=== PATIENT | male | born 1970 | race Hispanic/Latino ===

== ENCOUNTER 2025-06-05 08:01 | Inpatient (IN) | payer OTHER, SELFPAY ==
[2025-06-04 02:28] VITALS: BP 132/86
--- NOTE | 2025-06-04 02:56 | VATNOTE ---
PT ADMITTED FROM HOME HOSPICE TO IN-PATIENT HOSPICE FOR PAIN MANAGEMENT AND END OF LIFE CARE. PORT ACCESSED AT PATIENT AND 'S REQUEST.
--- NOTE | 2025-06-04 03:09 | ED.GENMED ---
History of Present Illness
General
Chief Complaint: Generalized Pain
Source: patient, spouse and family
Exam Limitations: clinical condition
Time Seen by Provider: 06/04/25 02:26
Nursing documentation reviewed up to this point in time: agreed with
History of Present Illness
History of Present Illness:
Note:
CHIEF COMPLAINT(S)
Severe pain and constipation.
HISTORY OF PRESENT ILLNESS
The patient is a 55-year-old male with a current complaint of severe pain and constipation. The patient has not had a bowel movement since Thursday and describes an overall lack of gastrointestinal movement that causes additional discomfort. He
experiences significant discomfort when consuming food, leading to a sensation reminiscent of vomiting, although this symptom has not been present. The patient reports that his intake of food has decreased, contributing to his overall discomfort.
The patient has been treated with Ativan previously, which has provided partial relief. The pain management regimen initially included Oxycontin 4 mg twice daily but was recently adjusted to include less long-acting medication last night with the
addition of a 50 mcg fentanyl patch. The patient has been receiving additional pain management throughout the day.
ADDITIONAL HISTORY OBTAINED FROM SOURCES OTHER THAN THE PATIENT
According to accompanying family members, hospice services have been involved at home, but symptom control was problematic due to the patient�s severe agitation and discomfort.
PHYSICAL EXAM
General: Alert, moderate acute distress.
Skin: Warm, dry. Jaundiced
Head: Normocephalic, atraumatic.
Neck: Supple, trachea midline.
Eye Ears, nose, mouth and throat: Oral mucosa moist.
Cardiovascular: Normal peripheral perfusion, no edema.
Respiratory: Respirations are non-labored.
Gastrointestinal: Abdomen nondistended.
Back: Normal range of motion, normal alignment.
Musculoskeletal: Normal ROM, normal strength.
Neurological: Alert and oriented to person, place, time, and situation, no focal neurological deficit observed.
Psychiatric: Cooperative, appropriate mood & affect.
PROBLEM LIST
Acute Problems:
- Severe pain
- Constipation
- Nausea
CHRONIC MEDICAL CONDITIONS SIGNIFICANTLY AFFECTING CARE
N/A
PLAN
1. Administer medication for nausea and pain control.
2. The patient will be assessed by the hospitalist to determine the appropriate plan for ongoing management and potential admission.
DIFFERENTIAL DIAGNOSIS
The Differential Diagnosis includes, in no particular order and is not limited to:
1. Acute cancer pain
2. Constipation secondary to opioid use
3. Gastroparesis
4. Peptic ulcer disease
5. Pancreatitis
6. Intestinal pseudo-obstruction
7. Severe opioid-induced bowel dysfunction
8. Malignancy causing bowel compression
9. Gastritis
10. Irritable bowel syndrome
Disposition:
SUMMARY OF ENCOUNTER
The patient, a 55-year-old male, was seen in the emergency department with complaints of severe pain and constipation. The patient has experienced no bowel movement since Thursday and reports significant gastrointestinal discomfort, as well as
discomfort when eating, which is likened to nausea. The patient�s food intake has diminished, exacerbating his discomfort. Pain management was adjusted, with the addition of a 50 mcg fentanyl patch to his regimen last night, following reduced
long-acting medication. Hospice services were involved at home but struggled with symptom control due to severe agitation and discomfort.
DISPOSITION
Admit
ASSESSMENT
Severe pain secondary to advanced colon cancer, with complications including constipation and reduced gastrointestinal motility.
PLAN
The patient will be admitted to the hospital service for comfort measures only, focusing on pain management and alleviating discomfort caused by constipation and gastrointestinal distress.
MEDICAL DECISION MAKING
- Complexity of Data Reviewed: Chronic conditions affecting care include severe pain possibly associated with malignancy. Differential diagnosis encompasses bowel obstruction, constipation secondary to opioid use, gastroparesis, peptic ulcer
disease, and other potential sources of discomfort and nausea.
- Data:
Category 2: Input from independent historians, specifically family members confirming hospice service involvement and challenges in symptom control.
- Risk: Decisions regarding ongoing pain management with opioid therapy and consideration for inpatient admission to provide adequate palliative care and symptom relief.
DIAGNOSIS
- Severe pain due to colon cancer (ICD-10 code: C18.9)
- Constipation secondary to medication (ICD-10 code: K59.00)
- Nausea associated with gastrointestinal distress (ICD-10 code: R11.0)
Phy Exam
Physical Exam
Physical Exam:
.
Course
Orders/Labs/Results
Orders:
Orders
06/04/25 02:59
Lorazepam [Ativan] 2 mg .ROUTE .STK-MED ONE
06/04/25 03:07
Lorazepam [Ativan] 1 mg IV NOW STA
Vital Signs
Initial and Last Documented VS:
Initial Vital Signs
Temp Pulse Resp BP Pulse Ox
97.7 F 83 18 132/86 100
06/04/25 02:28 06/04/25 02:28 06/04/25 02:28 06/04/25 02:28 06/04/25 02:28
Last Documented Vital Signs
Temp Pulse Resp BP Pulse Ox
97.7 F 83 18 132/86 100
06/04/25 02:28 06/04/25 02:28 06/04/25 02:28 06/04/25 02:28 06/04/25 02:28
*Pulse Oximetry
SaO2: 100
Oxygen Mode of Delivery: Room air
Patient hypoxic: no
*Critical Care Note
Total Time (30-74mins, 75-104mins- exclusive of procedures): Not Applicable
ED Attending Note
-
Portions of this chart may have been created with voice recognition software.� Occasional wrong word or��sound alike� substitutions may have occurred due to the inherent limitations of voice recognition software.
Discharge Plan
Departure
Patient Disposition: Admit
Date of Disposition: 06/04/25
Time of Disposition: 03:09
Admit to: Med/Surg
Presentation/result/management discussed w/ accepting MD/DO: Hospitalist
Condition: Serious
Discharge Problem:
Cancer-related pain
Interventions
Interventions:
*Risk Screen - Suicide Last Done: 06/04/25 02:28
*General Assessment Last Done: 06/04/25 02:28
*Neglect/Abuse Screening Last Done: 06/04/25 02:28
*ED- Fall Risk Assessment Last Done: 06/04/25 02:37
*ED COVID-19 Vaccine History Last Done: 06/04/25 02:37
*ED Influenza Vaccine History Last Done: 06/04/25 02:37
Discharge Date and Time
Print Language: THAI
[2025-06-04] MEDS: ATIVAN 1 MG IV (03:15)
--- NOTE | 2025-06-04 03:27 | HPS.HSE ---
Family Physician
-
Family Physician: Joby Sofia
Chief Complaint
-
Pain, Nausea
History of Present Illness
Patient is a 55y M with PMH significant for colon cancer currently on home hospice who presents to ED complaining of uncontrolled pain and nausea despite home hospice measures. Sent to ED for hospitalization at Hospice recommendation. History
obtained primarily from family at the bedside.
Patient initially diagnosed with colon cancer in 06/2023. On chemotherapy until February of this year. s/p multiple surgeries - most recent was ex lap in January which was aborted due to diffuse metastases.
Patient has been on hospice care at home for almost 2 weeks now.
Family states that he has not had a BM since Thursday. Typically has frequent, feculent emesis as well - and this has not occurred since Thursday either.
Patient has become progressively more agitated and in distress due to persistent nausea and abdominal discomfort.
Medical History
Past Medical History
Past Medical History: Reports Other
Additional Past Medical History:
Metastatic Colon Cancer
Hypertension
DM-II
Past Surgical History: Reports Other
Additional Past Surgical History:
Right Hemicolectomy (07/2023)
Liver Lesion Resection (06/2024)
Ex Lap - Planned Liver Lesion Resection - Aborted (01/2025)
Social History
Tobacco: Non-smoker
Alcohol: None
Drug: None
Family History
Family History: Not pertinent
Allergies / Home Medications
Allergies reflects when Allergies were last updated in [employer].
Home Medications with original date entered in [employer]
Allergy/Medication List:
Allergies
Allergy/AdvReac Type Severity Reaction Status Date / Time
No Known Allergies Allergy Unverified 06/04/25 03:05
Home Medications
dexamethasone 4 mg tablet 4 mg PO DAILY 06/04/25
fentanyl 25 mcg/hr transdermal patch 2 patch transdermal Q72H 06/04/25
gabapentin 300 mg capsule 300 mg PO BID 06/04/25
haloperidol 1 mg tablet 1.5 mg PO Q1.5HPRN PRN nausea 06/04/25
haloperidol lactate 2 mg/mL oral concentrate 1 mg PO Q3HPRN PRN nausea 06/04/25
hyoscyamine sulfate 0.125 mg/mL oral drops 0.125 mg PO Q4HPRN PRN secretions 06/04/25
lorazepam 1 mg/0.5 mL oral syringe (FOR ORAL USE ONLY) 1 mg PO Q4HPRN PRN anxiety 06/04/25
morphine 10 mg/5 mL oral solution 5 mg PO Q3HPRN PRN pain 06/04/25
omeprazole 20 mg capsule,delayed release 20 mg PO BID 06/04/25
Review of Systems
-
History Source: Patient and Family
A 12 point ROS was completed and negative except as noted: Yes
Constitutional: Reports Fatigue; Denies Fever
Respiratory: Reports Trouble Breathing; Denies Cough
Cardiac: Denies Chest Pain or Palpitations
Abdomen/GI: Reports Abdominal Pain, Nausea, Vomiting, Constipated and Anorexia
Musculoskeletal: Denies Joint Pain or Edema
Neurological: Denies Dizzy or Headache
Psych: Reports Anxiety
Physical Exam
Vital Signs
Vital Signs
Temp Pulse Resp BP Pulse Ox
97.7 F 83 18 132/86 100
06/04/25 02:28 06/04/25 02:28 06/04/25 02:28 06/04/25 02:28 06/04/25 03:10
Physical Exam
General: Other (Chronically ill-appearing 55y M in mild distress at present due to pain / nausea.)
HEENT: Other (Dry MM. Neck supple. Bitemporal wasting.)
Respiratory: Clear; No Wheezes, Rales or Rhonchi
Cardiac: S1/S2 and Regular Rhythm
GI: Other (Abdomen is distended. Pos BS. Diffusely tender.)
Musculoskeletal: No Edema
Impression/Plan
-
A/P: Patient is a 55y M currently on home hospice for metastatic colon cancer who presents to ED for evaluation of uncontrolled symptoms despite home hospice measures.
Metastatic Colon Cancer
Intractable Abdominal Pain
Intractable Nausea
- Observe overnight pending Hospice eval / formal admission to inpatient Hospice in the AM.
- Comfort care measures / medications as needed for control of patient's symptoms.
- Morphine IV PRN to begin - advancing to continuous infusion if needed to achieve symptom control.
- Adjust medications as needed for comfort.
Benign Hypertension
DM-II
- Off of all usual meds for months now in the wake of weight loss, deteriorating physical status, etc.
DVT Prophylaxis: N/A
Code Status: DNR
[2025-06-04 04:44] VITALS: BP 122/74
[2025-06-04] MEDS: MORPHINE SULFATE 2 MG IV ×4 (05:40→21:47)
[2025-06-04] MEDS: FLUSH (NSS) 2 FLUSH IV (05:42)
[2025-06-04] MEDS: ATIVAN 1 MG PO (05:44)
[2025-06-04] MEDS: HALDOL CONCENTRATE 1 MG SL (05:44)
--- NOTE | 2025-06-04 06:29 | PTCARENOTE ---
Received patient from the ED accompanied by 2 family members. Patient AAOx3, patient weak but able to get into bed with one assist. Patient assessed, VSS. Two Fentanyl patches from home were removed from patient's left upper arm and waisted per
covering provider and witnessed by a second RN. Patient verbalized an understanding to ring for all transfers. Bed alarm placed for patient safety.
[2025-06-04 07:00] VITALS: BP 108/70
[2025-06-04] MEDS: PROTONIX IV 40 MG IV ×2 (08:55→21:46)
--- NOTE | 2025-06-04 10:32 | W.PN.HOSP.TC ---
Today's Communication/Plan
-
see A/P
Assessment / Plan
Assessment / Plan
HPI: 55 yo M with PMH significant for colon cancer currently on home hospice who presented with uncontrolled pain and nausea despite home hospice measures. Sent to ED for hospitalization at Hospice recommendation.
History was obtained primarily from family at the bedside.
Patient initially diagnosed with colon cancer in 06/2023. On chemotherapy until February this year. s/p multiple surgeries - most recent was ex lap in January which was aborted due to diffuse metastases.
Patient has been on hospice care at home for almost 2 weeks now.
Family states that he has not had a BM since Thursday. Typically has frequent, feculent emesis as well - and this has not occurred since Thursday either.
Patient has become progressively more agitated and in distress due to persistent nausea and abdominal discomfort.
A/P:
# Metastatic Colon Cancer
# Intractable Abdominal Pain
# Intractable Nausea
Cont comfort care measures / medications as needed for control of patient's symptoms.
Morphine IV PRN to begin - advancing to continuous infusion if needed to achieve symptom control.
Adjust medications as needed for comfort.
# Benign Hypertension
# DM-II
Off of all usual meds for months now in the wake of weight loss, deteriorating physical status, etc.
DVT Prophylaxis: N/A
Code Status: DNR
DW at bedside
Anticipated Discharge: 24 - 48 hours
Subjective/Interval History
-
Date of Service: June 04, 2025
Objective Data
-
Vital Signs:
Vital Signs
Temp Pulse Resp BP Pulse Ox
36.9 C 81 12 108/70 100
06/04/25 07:00 06/04/25 07:00 06/04/25 07:00 06/04/25 07:00 06/04/25 07:00
Review of Systems
-
Unable to obtain full review of systems at this time due to: Acuity
Physical Exam
-
General: No Apparent Distress, Comfortable and Appears Chronically Ill; Negative Respiratory Distress
HEENT: Normocephalic and Atraumatic; Negative Oxygen
Respiratory: Non Labored Respirations; Negative Accessory Resp Muscle Use
Psych: Calm
[2025-06-04] MEDS: HALDOL 1 MG IV (12:35)
--- NOTE | 2025-06-04 12:35 | HOSPNOTE ---
Patient sent in from home hospice and admitted early this morning under [facility] level of care for management of nausea, pain, and anxiety that could not be managed at home, having difficulty tolerating oral medication due to nausea. Assessed patient in
the bed was asleep but awoke soon after entering room complaining of abdominal pain 6/10 and nausea that 'wont go away.' Drinking water and chewing on ice chips not helping. Coordinated care with Aruna SILVER and requested a dose of IV Haldol, Ativan
and Morphine, Zofran also given. Abdomen distended, hyperactive BS, tender all over. and sister at bedside, emotional support and active listening provided. Family would like to speak with [facility] [employer] [facility] on hiring [facility] once symptoms managed and can
get patient back home on hospice.
[2025-06-04] MEDS: ATIVAN 2 MG IV ×2 (12:36→16:05)
[2025-06-04] MEDS: ZOFRAN 4 MG IV ×2 (12:44→21:47)
[2025-06-04] MEDS: ROBINUL 0.2 MG IV (12:44)
[2025-06-04 19:51] VITALS: BP 104/66
[2025-06-05] MEDS: COMPAZINE 5 MG IV (00:41)
[2025-06-05] MEDS: MORPHINE SULFATE 2 MG IV ×8 (02:08→19:18)
[2025-06-05] MEDS: ZOFRAN 4 MG IV ×2 (04:35→10:43)
[2025-06-05] MEDS: ATIVAN 1 MG PO (04:55)
[2025-06-05 07:39] VITALS: BP 115/73
[2025-06-05] MEDS: PROTONIX IV 40 MG IV ×2 (08:24→19:19)
[2025-06-05] MEDS: HALDOL 1 MG IV ×2 (08:34→18:18)
[2025-06-05] MEDS: MORPHINE 100 IV (10:04)
[2025-06-05] MEDS: ATIVAN 2 MG IV (10:43)
--- NOTE | 2025-06-05 11:42 | HOSPNOTE ---
Atomic Welder visited patient in room 2133 and patient had just been medicated so was resting comfortably. Patient's mother was by his side and reported that when patient is not medicated he is very agitated and calling out that he wants to . Patients
mother reported he has no pain because he is receiving pallative care. Patient is a 55 year old with metastatic colon cancer and was diagnosed two years ago and had 2 surgeries and chemotherapy. Patient is and has two children, a daughter
and a son. Patients mother was by his side hoping for a miracle and asked stock saw operator if she has ever seen a miracle. 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
wonderful , father, brother and son. Patient has a sister who has been very supportive. Patients and daughter slept at the hospital last evening. Patients family has tried calling [facility] for anointing of the sick visit with no
response. Atomic Welder has agreed to stop at the [facility] office in the hospital to see if a medical microbiologist can come to the room. Atomic Welder provided emotional and spiritual support through presence, touch and prayer as well as active listening. Atomic Welder
will be available weekly for support.
--- NOTE | 2025-06-05 11:46 | CM ---
CM reviewed pt with Hospice liasison
Pt from home on service with Hospice
Admitted from home for GIP
CM will remain available for support and planning as needed
Discharge Disposition- [facility] hospice
--- NOTE | 2025-06-05 12:19 | W.PN.UPDATE ---
Update Note
Progress Note Update
I saw and evaluated the patient with the resident.
HPI: 55 yo M with PMH significant for colon cancer currently on home hospice who presented with uncontrolled pain and nausea despite home hospice measures. Sent to ED for hospitalization at Hospice recommendation.
History was obtained primarily from family at the bedside.
Patient initially diagnosed with colon cancer in 06/2023. On chemotherapy until February this year. s/p multiple surgeries - most recent was ex lap in January which was aborted due to diffuse metastases.
Patient has been on hospice care at home for almost 2 weeks now.
Family states that he has not had a BM since Thursday. Typically has frequent, feculent emesis as well - and this has not occurred since Thursday either.
Patient has become progressively more agitated and in distress due to persistent nausea and abdominal discomfort.
A/P:
# Metastatic Colon Cancer
# Intractable Abdominal Pain
# Intractable Nausea
Cont comfort care measures, started morphine drip 06/05
Cont IV Ativan and other comfort meds
# Benign Hypertension
# DM-II
Off of all usual meds for months now in the wake of weight loss, deteriorating physical status, etc.
DVT Prophylaxis: N/A
Code Status: DNR
DW mother at bedside
--- NOTE | 2025-06-05 12:22 | W.PN.HOSP.TC ---
Today's Communication/Plan
-
change to morphine ggt
valium prn
discuss with mother at bedside/ via phone
c/t adjust comfort care meds as needed
Assessment / Plan
Assessment / Plan
55 yo M with PMH significant for colon cancer currently on home hospice who presented with uncontrolled pain and nausea despite home hospice measures. Sent to ED for hospitalization at Hospice recommendation.
History was obtained primarily from family at the bedside.
Patient initially diagnosed with colon cancer in 06/2023. On chemotherapy until February this year. s/p multiple surgeries - most recent was ex lap in January which was aborted due to diffuse metastases.
Patient has been on hospice care at home for almost 2 weeks now.
Family states that he has not had a BM since Thursday. Typically has frequent, feculent emesis as well - and this has not occurred since Thursday either.
Patient has become progressively more agitated and in distress due to persistent nausea and abdominal discomfort.
# Metastatic Colon Cancer
# Intractable Abdominal Pain
# Intractable Nausea
Cont comfort care measures / medications as needed for control of patient's symptoms.
increase to Morphine ggt
change ativan to valium for agitation
Adjust medications as needed for comfort.
# Benign Hypertension
# DM-II
Off of all usual meds for months now in the wake of weight loss, deteriorating physical status, etc.
DVT Prophylaxis: N/A
Code Status: DNR
Anticipated Discharge: > 48 hours
Subjective/Interval History
-
Date of Service: June 05, 2025
Requiring increasing doses of prn morphine with periods of pain/agitation upon awaking. Intermittent nausea, no vomiting.
Objective Data
-
Vital Signs:
Vital Signs
Temp Pulse Resp BP Pulse Ox
97.8 F 101 18 115/73 98
06/05/25 07:39 06/05/25 07:39 06/05/25 07:39 06/05/25 07:39 06/05/25 07:39
I&O
06/04/25 06/05/25 06/06/25
06:59 06:59 06:59
Output Total 1100 / 1100
Balance -1100 / -1100
Review of Systems
-
History Source: Patient and Family
All other systems: Reviewed and negative
Constitutional: Reports Other (Pain)
Physical Exam
-
General: Other (pt comfortable and asleep when seen by me, recently received dose of morphine/haldol/ativan)
--- NOTE | 2025-06-05 13:08 | HOSPNOTE ---
Patient is now resting comfortably on a morphine drip step 2. Order changed for valium and discontinue ativan. Patient does become extremely agitated so needs medications given prior to severe agitation. Spoke with spouse and explained and she is
comforted knowing he appears much more comfortable. Patient will continue to be inpatient hospice appropriate for management of agitation, pain and nausea. Patient will be seen daily.
--- NOTE | 2025-06-05 14:40 | PTCARENOTE ---
Patient requiring PRN medication for verbalized pain and anxiety/restlessness this AM - see SEP. Morphine gtt order initiated this AM by this RN after discussion with resident, infusing through R subq port at 2mg/hr per order. Family at bedside
updated on plan of care.
--- NOTE | 2025-06-05 14:46 | CHAP ---
Emotional and spiritual support offered to Mr. Hamm and family at bedside. They had earlier asked for a hedis coordinator to visit, but reported to me that he had already received Sacrament of the Sick so didn't need a hedis coordinator to come. We will follow as
able through his hospital stay.
--- NOTE | 2025-06-05 15:00 | CHAP ---
Fr. Jose Waters of [facility] in [place] was able to give Juarez an Apostolic Pardon. Exact time uncertain.
[2025-06-05] MEDS: VALIUM INJECTION 2 MG IV ×2 (18:02→20:35)
--- NOTE | 2025-06-05 20:05 | PTCARENOTE ---
Patient unable to void despite urge, bladder scan 357ml. MD made aware, order placed for Wren for end of life care. Patient and family in agreement with placement. 14fr Wren placed with assistance of tech for tea colored output, patient medicated
with PRN morphine, Valium and Haldol for placement and for verbalized restlessness/pain - see MAR. Bed bath provided, morphine gtt infusing through R subq port, bed alarm in place. Family at bedside.
[2025-06-05] MEDS: MORPHINE SULFATE 4 MG IV (21:39)
[2025-06-05 23:39] VITALS: BP 111/66
[2025-06-06] MEDS: VALIUM INJECTION 2 MG IV ×6 (03:43→23:05)
[2025-06-06] MEDS: MORPHINE SULFATE 4 MG IV ×6 (03:43→15:14)
[2025-06-06 07:55] VITALS: BP 99/63
--- NOTE | 2025-06-06 08:11 | W.PN.HOSP.TC ---
Addendum entered and electronically signed by Oliva Donaldson MD 06/06/25 17:51:
I saw and evaluated the patient independently. I reviewed and discussed the resident�s note and agree with findings and plan as documented by Dr. Cannon.
GENERAL: chronically ill appearing male, unresponsive
HEENT: NC/AT
HEART: regular rate and rhythm, +S1, +S2
LUNGS : clear to auscultation bilaterally
ABDOM: soft, nontender, distended, no bowel sounds
EXT: no cyanosis, clubbing, or edema
NEUROLOGIC: not responsive--appears comfortable
Metastatic Colon Cancer--was on home hospice but pain/nausea uncontrolled--now on GIP inpt hospice (fixed orders)--Intractable Abdominal Pain--apprec hospice nurse--morphine drip--adjust as needed--Robinul IV as needed for secretions
essential Hypertension/ type 2 DM--off all meds due to inpt hospice
DVT Proph-- N/A
Code Status-- DNR
Original Note:
Today's Communication/Plan
-
advance to morphine ggt step 4 protocol
c/w prn medications for nausea, secretion management, agitation
Assessment / Plan
Assessment / Plan
55 yo M with PMH significant for colon cancer currently on home hospice who presented with uncontrolled pain and nausea despite home hospice measures. Sent to ED for hospitalization at Hospice recommendation.
History was obtained primarily from family at the bedside.
Patient initially diagnosed with colon cancer in 06/2023. On chemotherapy until February this year. s/p multiple surgeries - most recent was ex lap in January which was aborted due to diffuse metastases.
Patient has been on hospice care at home for almost 2 weeks now.
Family states that he has not had a BM since Thursday. Typically has frequent, feculent emesis as well - and this has not occurred since Thursday either.
Patient has become progressively more agitated and in distress due to persistent nausea and abdominal discomfort.
# Metastatic Colon Cancer
# Intractable Abdominal Pain
# Intractable Nausea
Cont comfort care measures / medications as needed for control of patient's symptoms.
increase to Morphine ggt
change ativan to valium for agitation
Adjust medications as needed for comfort.
# Benign Hypertension
# DM-II
Off of all usual meds for months now in the wake of weight loss, deteriorating physical status, etc.
DVT Prophylaxis: N/A
Code Status: DNR
Anticipated Discharge: > 48 hours
Subjective/Interval History
-
Date of Service: June 06, 2025
pt comfortable during the morning with no acute overnight events. However, in the early afternoon pt had episode of large volume fecal smelling vomitus with resultant agitation. Status was improved with prn medication and he has since been resting
comfortably. There is some gurgling present. He was given prn medication to help manage secretions.
Objective Data
-
Vital Signs:
Vital Signs
Temp Pulse Resp BP Pulse Ox
98.2 F 109 16 99/63 98
06/06/25 07:55 06/06/25 07:55 06/06/25 07:55 06/06/25 07:55 06/06/25 07:55
I&O
06/05/25 06/06/25 06/07/25
06:59 06:59 06:59
Output Total 1100 / 1100 725 / 725
Balance -1100 / -1100 -725 / -725
Review of Systems
-
History Source: Patient
Cardiac: Reports No Symptoms
Abdomen/GI: Reports Abdominal Pain, Nausea and Vomiting
Genitourinary: Reports Dark Urine
Musculoskeletal: Reports No Symptoms
Skin: Reports No Symptoms
Neuro: Reports No Symptoms
Psych: Reports Other
Physical Exam
-
General: No Apparent Distress, Comfortable and Other (asleep, resting comfortably)
Respiratory: Other (audible gurgling)
Psych: Other
[2025-06-06] MEDS: PROTONIX IV IV ×2 (09:19→18:51)
[2025-06-06] MEDS: ZOFRAN 4 MG IV (09:41)
[2025-06-06] MEDS: HALDOL 1 MG IV (10:10)
--- NOTE | 2025-06-06 15:27 | PN.CDI ---
CDI
- -
CDI:
Physician Documentation Request
Admit Date: 06/05/25 08:01
Dear Doctor,
Please review the following and provide your response in the progress notes.
Clinical Indicators:
- Patient admit for metastatic colon cancer
- 06/05 PN 'ex lap in January which was aborted due to diffuse metastases'
- H&P no documentation of metastasis location
Please clarify/update in the progress note, the location of the colon cancer metastasis:
Colon cancer with metastasis to
Unable to determine
Use of terms such as suspected, likely, concern for, or probable (associated with a specific diagnosis that is being evaluated, monitored, or treated as if it exists) are acceptable and can be coded in the inpatient setting, when documented at the
time of discharge.
Thank you,
Rosie Petit RN
CDI Specialist
Please use your independent medical judgment in providing your response.
--- NOTE | 2025-06-06 15:40 | PN.CDI ---
Addendum entered and electronically signed by Oliva Donaldson MD 06/07/25 13:58:
metastatic location unknown to us--was admitted from home hospice to inpt hospice for symptom control from metastatic colon cancer
Original Note:
CDI
- -
CDI:
Physician Documentation Request
Admit Date: 06/05/25 08:01
Dear Doctor,
Please review the following and provide your response in the progress notes.
Clinical Indicators:
- Patient admit for metastatic colon cancer
- 06/05 PN 'ex lap in January which was aborted due to diffuse metastases'
- H&P no documentation of metastasis location
Please clarify/update in the progress note, the location of the colon cancer metastasis:
Colon cancer with metastasis to
Other (please specify)
Unable to determine
Use of terms such as suspected, likely, concern for, or probable (associated with a specific diagnosis that is being evaluated, monitored, or treated as if it exists) are acceptable and can be coded in the inpatient setting, when documented at the
time of discharge.
Thank you,
Rosie Petit RN
CDI Specialist
Please use your independent medical judgment in providing your response.
[2025-06-06] MEDS: ROBINUL 0.2 MG IV ×3 (15:43→23:47)
[2025-06-06] MEDS: MORPHINE 100 IV (16:03)
--- NOTE | 2025-06-06 16:44 | CM ---
Patient for GIP hospice, family at bedside with physicians. CM will continue to follow for discharge planning needs.
Plan; hospice
--- NOTE | 2025-06-06 17:08 | HOSPNOTE ---
Patient is now on a morphine drip step 3 and had an episode of vomiting this am and was given IV zofran Patient needs to be medicated prior to care or repositioning. Patient continues to be inpatient hospice appropriate for management of pain and
agitation. Patient will be seen daily.
[2025-06-06] MEDS: LEVSIN ORAL DROPS 0.125 MG SL (17:43)
[2025-06-06] MEDS: TYLENOL/FEVERALL 650 MG RECTAL (17:43)
[2025-06-06] MEDS: MORPHINE SULFATE 6 MG IV ×2 (18:40→23:04)
[2025-06-06] MEDS: TRANSDERM-SCOP 1 PATCH TRANSDERM (19:31)
[2025-06-06 23:15] VITALS: BP 86/54
[2025-06-07 02:07] VITALS: BP 86/54
[2025-06-07] MEDS: MORPHINE SULFATE 6 MG IV ×3 (06:24→10:48)
[2025-06-07] MEDS: MORPHINE 100 IV (07:07)
--- NOTE | 2025-06-07 07:16 | PTCARENOTE ---
Morphine gtt bag replaced by this RN this AM, Step 4 (6mg/hr). Lockbox in use.
[2025-06-07 07:40] VITALS: BP 71/47
[2025-06-07] MEDS: PROTONIX IV IV (07:59)
[2025-06-07] MEDS: ROBINUL 0.2 MG IV (08:00)
[2025-06-07] MEDS: ZOFRAN 4 MG IV (10:01)
[2025-06-07] MEDS: VALIUM INJECTION 2 MG IV (10:48)
--- NOTE | 2025-06-07 11:11 | PTCARENOTE ---
This RN called to room because pt is agonal breathing, pt medicated for EOL pain. RN called to room about 10 minutes later to see that pt seemed to have passed, no breath sounds or pulse noted for this RN. made aware, MD in to pronounce pt.
--- NOTE | 2025-06-07 11:15 | W.DCSUMMARY ---
Addendum entered and electronically signed by Oliva Donaldson MD 06/08/25 15:15:
Read, reviewed, and agree. See same day progress note for additional details. Time spent coordinating care, DC planning, review of DC plan of care with resident, transition of care, review of records in EMR, med rec, consults, notes, d/w
consultants, nursing, family, and CM = 34 minutes
Original Note:
Discharge Summary
Discharge Data
Date of Admission: 06/05/25
Date of Discharge: 06/07/25
Total time spent discharging patient (in min): >30m
-
Pending Results: No
Hospital Course
Discharging Physician : Dr. Donaldson
Disposition :
Primary care physician : Dr. Sofia
Principal Discharge diagnosis : Metastatic colon cancer, intractable pain secondary to metastatic disease
Hospital Course :
Juarez was a 55-year-old male who was admitted to [facility] from home hospice due to intractable cancer pain and agitation unable to be managed by family and home care team. He was admitted for inpatient hospice , IV morphine drip, and IV
comfort care measures. He was started on morphine drip, ultimately requiring higher and higher doses for pain control. He was seen by our inpatient hospice nurse who adjusted medications for ideal comfort. Family was present at bedside throughout
the stay and communicated with care team. Per family, patient was doing significantly better in hospital as compared to home, and they were very happy with his comfort level. Ultimately he passed at 11:10 AM on 06/07/2025. Family was at bedside.
No autopsy was done.
Discharge Plan
-
Patient Disposition:
Date/Time
Date/Time: 06/07/25 11:10
Discharge Date and Time
Discharge Date/Time: 06/07/25 15:15
Print Language: [id number]
--- NOTE | 2025-06-07 11:22 | W.PN.HOSP.TC ---
Addendum entered and electronically signed by Oliva Donaldson MD 06/07/25 12:55:
I saw and evaluated the patient independently. I reviewed and discussed the resident�s note and agree with findings and plan as documented by Dr. Cannon.
GENERAL: chronically ill appearing male, unresponsive
HEENT: NC/AT
HEART: regular rate and rhythm, +S1, +S2
LUNGS : clear to auscultation bilaterally
ABDOM: soft, nontender, distended, no bowel sounds
EXT: no cyanosis, clubbing, or edema
NEUROLOGIC: not responsive--appears comfortable
Metastatic Colon Cancer--was on home hospice but pain/nausea uncontrolled--now on GIP inpt hospice (fixed orders)--Intractable Abdominal Pain--apprec hospice nurse--cont morphine drip--adjust as needed--Robinul IV as needed for secretions
essential Hypertension/ type 2 DM--off all meds due to inpt hospice
DVT Proph-- N/A
Code Status-- DNR
Original Note:
Today's Communication/Plan
-
c/w comfort care measures
Assessment / Plan
Assessment / Plan
55 yo M with PMH significant for colon cancer currently on home hospice who presented with uncontrolled pain and nausea despite home hospice measures. Sent to ED for hospitalization at Hospice recommendation.
History was obtained primarily from family at the bedside.
Patient initially diagnosed with colon cancer in 06/2023. On chemotherapy until February this year. s/p multiple surgeries - most recent was ex lap in January which was aborted due to diffuse metastases.
Patient has been on hospice care at home for almost 2 weeks now.
Family states that he has not had a BM since Thursday. Typically has frequent, feculent emesis as well - and this has not occurred since Thursday either.
Patient has become progressively more agitated and in distress due to persistent nausea and abdominal discomfort.
# Metastatic Colon Cancer
# Intractable Abdominal Pain
# Intractable Nausea
Cont comfort care measures / medications as needed for control of patient's symptoms.
increase to Morphine ggt
change ativan to valium for agitation
Adjust medications as needed for comfort.
# Benign Hypertension
# DM-II
Off of all usual meds for months now in the wake of weight loss, deteriorating physical status, etc.
DVT Prophylaxis: N/A
Code Status: DNR
Anticipated Discharge: Within 24 hours
Subjective/Interval History
-
Date of Service: June 07, 2025
pt comfortable on current dose morphine ggt. no new episodes of vomiting.
Objective Data
-
Vital Signs:
Vital Signs
Temp Pulse Resp BP Pulse Ox
99.9 F 126 18 71/47 95
06/07/25 07:40 06/07/25 07:40 06/07/25 07:40 06/07/25 07:40 06/07/25 08:47
I&O
06/06/25 06/07/25 06/08/25
06:59 06:59 06:59
Output Total 725 / 725 100 / 100
Balance -725 / -725 -100 / -100
Review of Systems
-
History Source: Patient and Family
All other systems: Reviewed and negative
Constitutional: Reports No Symptoms
EENT: Reports No Symptoms Reported
Respiratory: Reports No Symptoms
Cardiac: Reports No Symptoms
Abdomen/GI: Reports No Symptoms
Genitourinary: Reports No Symptoms
Musculoskeletal: Reports No Symptoms
Skin: Reports No Symptoms
Neuro: Reports No Symptoms
Endocrine: Reports No Symptoms
Physical Exam
-
General: Comfortable, Appears Chronically Ill and Other (pt sleeping and comfortable)
Respiratory: Rhonchi, Decreased Breath Sounds and Other (shallow breathing pattern)
Cardiac: Regular Rhythm and S1/S2
--- NOTE | 2025-06-07 11:23 | W.PN.DEATH ---
Pronouncement of
-
Called to see patient to pronounce.
No spontaneous heart tones or respirations noted.
Patient not responsive to verbal stimuli.
Patient is pronounced .
Time of : 11:10
Date of : 06/07/25
Cause of : metastatic colon cancer
Family Notified: Yes
--- NOTE | 2025-06-07 12:44 | HOSPNOTE ---
Went to see patient and spoke with the family early in the morning. The floor RN informed me that he had passed. I went to see family and offer support and will assist with home picking patient up and notifying medical records.
--- NOTE | 2025-06-07 15:10 | PTCARENOTE ---
Pt brought down on EMS stretcher out of ED doors, stretcher loaded into ambulance, this RN and english division chair at side for emotional support for family and friends. No bag used, face covered and security present for transfer, toe tagged.
--- NOTE | 2025-06-07 15:21 | CM ---
Patient with family present in 2 north room. CM will continue to follow for discharge planning needs.
Plan;
== END 2025-06-07 15:15 | disposition expired | DRG 951 ==
LOC: 2 NORTH 08:01
PROVIDERS: ADMITTING PHYSICIAN Hospitalist; ATTENDING PHYSICIAN Internal Medicine; EMERGENCY PHYSICIAN Student in an Organized Health Care Education/Training Program; FAMILY PHYSICIAN Family Medicine
DX: Z51.5 Encounter for palliative care (principal); C18.9 Malignant neoplasm of colon, unspecified; I10 Essential (primary) hypertension; E11.9 Type 2 diabetes mellitus without complications; Z66 Do not resuscitate; G89.3 Neoplasm related pain (acute) (chronic)
CPT/HCPCS: 87070; 96374; 99285